=== PATIENT | male | born 1975 | race African-American/Black ===

== ENCOUNTER 2016-11-10 03:31 | Emergency (ER) | payer OTHER ==
[~2016-11-10] VITALS: Ht 182.9 cm; Wt 100.0 kg
[~2016-11-10 03:31] MED LIST: GABA600T PO; PERC10TA27 PO; XANA1TAB6 PO; ZITH250T PO
[2016-11-10 03:34] VITALS: BP 116/85; PULSE 69; RESP 20; TEMP 98.2; O2SAT 98
[2016-11-10 04:00] VITALS: BP 147/79; PULSE 62; RESP 20; TEMP 98.8; O2SAT 100
[2016-11-10] MEDS ORDERED: GABA600T PO (04:03)
--- NOTE | 2016-11-10 04:22 | PD ---
HPI Chief Complaint: GI Complaint Time Seen by Provider: 04:08 Travel History International Travel<30 days: No Contact w/Intl Traveler<30days: No Traveled to known affect area: No History of Present Illness HPI 41-year-old man who presents emergency department saying he has not felt well for the past several days. States several days ago he started feeling generally unwell, having chills, not able to breathe. Started having coughing. He states starting today he had coughing productive of mucoid phlegm associated with some bright red blood. He states he also today throughout blood. Denies ever having had previous similar problems. He was seen in the emergency Department one time last year for hemoptysis and chest pain with a negative workup including labs, CT pulmonary angiogram and stress test. Myocardial perfusion scan. There is also positive for cocaine and marijuana at that point. States he otherwise had been feeling well. No definite sick contacts. History of asthma, as well as seizures. No other complaints. History Past Medical History Narrative Medical Asthma Seizures Tetanus Vaccination: < 5 Years Social History Alcohol Use: No Tobacco Use: Yes Allergies-Medications (Allergen,Severity, Reaction): Coded Allergies: No Known Allergies (Unverified , 11/10/16) Reported Meds & Prescriptions Reported Meds & Active Scripts Active Reported Gabapentin 600 Mg Tab 600 Mg PO TID Review of Systems Except as stated in HPI: all other systems reviewed are Neg Physical Exam Narrative GENERAL: 41-year-old man, no acute distress. SKIN: Warm and dry. HEAD: Atraumatic. Normocephalic. EYES: Pupils equal and round. No scleral icterus. No injection or drainage. ENT: No nasal bleeding or discharge. Mucous membranes pink and moist. Throat is normal. NECK: Trachea midline. No JVD. CARDIOVASCULAR: Regular rate and rhythm. No murmur appreciated. RESPIRATORY: No accessory muscle use. Clear to auscultation. Breath sounds equal bilaterally. GASTROINTESTINAL: Abdomen soft, non-tender, nondistended. Hepatic and splenic margins not palpable. MUSCULOSKELETAL: Usual contracture deformity of the left upper extremity. Otherwise unremarkable. No edema. NEUROLOGICAL: Awake and alert. No obvious cranial nerve deficits. Motor grossly within normal limits. Normal speech. Data Data Last Documented VS Vital Signs Date Time Temp Pulse Resp B/P Pulse Ox O2 Delivery O2 Flow Rate FiO2 11/10/16 04:00 98.8 62 20 147/79 100 Room Air Orders Chest, Pa & Lat (11/10/16 ) Electrocardiogram (11/10/16 ) Complete Blood Count With Diff (11/10/16 04:01) Comprehensive Metabolic Panel (11/10/16 04:01) Act Partial Throm Time (Ptt) (11/10/16 04:01) Prothrombin Time / Inr (Pt) (11/10/16 04:01) Ed Poc Ultrasound (11/10/16 ) Labs Laboratory Tests Test 11/10/16 04:16 White Blood Count 5.2 TH/MM3 Red Blood Count 4.25 MIL/MM3 Hemoglobin 13.4 GM/DL Hematocrit 37.6 % Mean Corpuscular Volume 88.4 FL Mean Corpuscular Hemoglobin 31.5 PG Mean Corpuscular Hemoglobin 35.7 % Concent Red Cell Distribution Width 14.1 % Platelet Count 246 TH/MM3 Mean Platelet Volume 8.1 FL Neutrophils (%) (Auto) 60.1 % Lymphocytes (%) (Auto) 26.9 % Monocytes (%) (Auto) 11.0 % Eosinophils (%) (Auto) 1.7 % Basophils (%) (Auto) 0.3 % Neutrophils # (Auto) 3.1 TH/MM3 Lymphocytes # (Auto) 1.4 TH/MM3 Monocytes # (Auto) 0.6 TH/MM3 Eosinophils # (Auto) 0.1 TH/MM3 Basophils # (Auto) 0.0 TH/MM3 CBC Comment DIFF FINAL Differential Comment Prothrombin Time 10.6 SEC Prothromb Time International 1.0 RATIO Ratio Activated Partial 27.9 SEC Thromboplast Time Sodium Level 141 MEQ/L Potassium Level 3.9 MEQ/L Chloride Level 109 MEQ/L Carbon Dioxide Level 23.1 MEQ/L Anion Gap 9 MEQ/L Blood Urea Nitrogen 13 MG/DL Creatinine 1.24 MG/DL Estimat Glomerular Filtration 78 ML/MIN Rate Random Glucose 82 MG/DL Calcium Level 8.7 MG/DL Total Bilirubin 0.5 MG/DL Aspartate Amino Transf 14 U/L (AST/SGOT) Alanine Aminotransferase 19 U/L (ALT/SGPT) Alkaline Phosphatase 69 U/L Total Protein 7.5 GM/DL Albumin 3.8 GM/DL MDM Medical Decision Making Medical Screen Exam Complete: Yes Emergency Medical Condition: Yes Interpretation(s) My review of EKG: Sinus bradycardia at a rate of 57, normal axis, normal intervals, no acute ischemia. Likely LVH. Chest x-ray: No evidence of acute cardiopulmonary disease. CBC is unremarkable. CMP is unremarkable. Coags unremarkable. Differential Diagnosis Bronchitis, pneumonia, PE, ACS, other Narrative Course Medical decision making INITIAL: 41-year-old man with not feeling well for several days, chills, productive cough with some bloody sputum, as well as reported hematemesis. Previous evaluation for hemoptysis was negative. Suspect bronchitis. May be some kind of reactive pneumonitis if he is still smoking cocaine or marijuana. Nonetheless, he looks overall well. Normal pulmonary exam. We'll check x-ray, labs, likely supportive treatment. Diagnosis Primary Impression: Bronchitis Additional Instructions: Take ranitidine as prescribed. Use a inhaler as needed for any shortness of breath or chest tightness. Follow-up with her primary doctor in the next 2-4 days. Return to the emergency department for any new or worsening symptoms. Med/Other Pt SpecificInfo: Prescription(s) given Scripts Albuterol 18 GM Inh (Ventolin Hfa 18 GM Inh)90 Mcg/Act Aer2 Puff INH Q4-6H PRN ( SHORTNESS OF BREATH) #1 INHALER Prov:Behzad Ferrer MD 11/10/16 Ranitidine 150 Mg [id number] Mg PO BID #60 CAP Prov:Behzad Ferrer MD 11/10/16 Disposition: 01 DISCHARGE HOME Condition: Stable Behzad Ferrer MD Nov 10, 2016 04:22
--- NOTE | 2016-11-10 04:39 | RADRPT ---
EXAM DATE/TIME: 11/10/2016 04:19 [facility] COMPARISON: No previous studies available for comparison. INDICATIONS : Coughing up blood and chest pain. MEDICAL HISTORY : None. SURGICAL HISTORY : None. ENCOUNTER: Initial ACUITY: 2 days PAIN SCORE: 4/10 LOCATION: chest FINDINGS: PA and lateral views of the chest demonstrate the lungs to be symmetrically aerated without evidence of mass, infiltrate or effusion. The cardiomediastinal contours are unremarkable. Osseous structure s are intact. CONCLUSION: No evidence of acute cardiopulmonary disease. Magdaleno Moon MD on November 10, 2016 at 4:37 Board Certified Radiologist. This report was verified electronically.
[2016-11-10 04:46] LABS: AUTOMATED NEUTROPHIL # 3.1 TH/MM3 (1.8-7.7); BASOPHIL % 0.3 % (0.0-2.0); EOSINOPHIL # 0.1 TH/MM3 (0-0.4); EOSINOPHIL % 1.7 % (0.0-4.0); HEMATOCRIT 37.6 % (39.0-51.0); HEMO FLAGS DIFF FINAL; LYMPH % 26.9 % (9.0-44.0); LYMPHOCYTE # 1.4 TH/MM3 (1.0-4.8); MEAN CELL VOLUME 88.4 FL (80.0-100.0); MEAN CORPUSCULAR HEMOGLOBIN 31.5 PG (27.0-34.0); MEAN CORPUSCULAR HGB CONC 35.7 % (32.0-36.0); NEUT % 60.1 % (16.0-70.0); PLATELET COUNT 246 TH/MM3 (150-450); RED BLOOD COUNT 4.25 MIL/MM3 (4.50-5.90); RED CELL DISTRIBUTION WIDTH 14.1 % (11.6-17.2); WHITE BLOOD COUNT 5.2 TH/MM3 (4.0-11.0)
[2016-11-10 04:57] LABS: APTT (PATIENT) 27.9 SEC (24.3-30.1); PROTHROMBIN TIME - PATIENT 10.6 SEC (9.8-11.6)
[2016-11-10 05:09] LABS: ALT (GPT) 19 U/L (12-78); ANION GAP 9 MEQ/L (5-15); AST (GOT) 14 U/L (15-37); BICARBONATE 23.1 MEQ/L (21.0-32.0); BLOOD UREA NITROGEN 13 MG/DL (7-18); CHLORIDE 109 MEQ/L (98-107); GLOMERULAR FILTRATION RATE 78 ML/MIN (>89); POTASSIUM 3.9 MEQ/L (3.5-5.1); SODIUM (NA) 141 MEQ/L (136-145)
[2016-11-10 05:11] LABS: ALKALINE PHOSPHATASE 69 U/L (45-117); TOTAL BILIRUBIN ADULT 0.5 MG/DL (0.2-1.0)
[2016-11-10] MEDS ORDERED: RANI150C PO (05:18)
[2016-11-10] MEDS ORDERED: VENTAER INH (05:18)
[2016-11-10 05:34] VITALS: BP 124/79
--- NOTE | 2016-11-10 16:19 | EKG ---
Date Performed: 11/10/2016 Time Performed: 04:34:15 PTAGE: 41 years EKG: SINUS BRADYCARDIA VOLTAGE CRITERIA FOR LVH. Early repolarization changes present. Since pre vious tracing, no significant change noted ABNORMAL ECG PREVIOUS TRACING : 05/06/2016 05.28.08 DOCTOR: Nahun Reese Interpretating Date/Time 11/10/2016 16:17:33
== END 2016-11-10 05:46 | disposition home or self-care (01) ==
LOC: NEPC 03:31
DX: J40 Bronchitis, not specified as acute or chronic (principal); K92.0 Hematemesis; R04.2 Hemoptysis; R94.31 Abnormal electrocardiogram [ECG] [EKG]; Z72.0 Tobacco use; Z87.09 Personal history of other diseases of the respiratory system; Z86.69 Personal history of other diseases of the nervous system and sense organs
CPT/HCPCS: 71020; 80053; 85025; 85610; 85730; 93005

== ENCOUNTER 2017-04-12 00:31 | Emergency (ER) | payer OTHER ==
[~2017-04-12] VITALS: Ht 180.3 cm; Wt 105.0 kg
[~2017-04-12 00:31] MED LIST changes: -PERC10TA27 PO; +RANI150C PO; +VENTAER INH; -XANA1TAB6 PO; -ZITH250T PO
[2017-04-12 00:36] VITALS: BP 156/74; PULSE 73; RESP 18; TEMP 98.1; O2SAT 98
[2017-04-12] MEDS ORDERED: SODIUM CHLORIDE 0.9% FLUSH 10 ML FLUSH IVF PRN (01:30)
[2017-04-12] MEDS ORDERED: SODIUM CHLORID 0.9% 500 ML INJ 500 ML IV ONE (01:30)
[2017-04-12 01:42] LABS: AUTOMATED NEUTROPHIL # 4.8 TH/MM3 (1.8-7.7); BASOPHIL % 0.3 % (0.0-2.0); EOSINOPHIL % 0.5 % (0.0-4.0); HEMATOCRIT 40.2 % (39.0-51.0); HEMO FLAGS DIFF FINAL; LYMPH % 27.9 % (9.0-44.0); LYMPHOCYTE # 2.3 TH/MM3 (1.0-4.8); MEAN CELL VOLUME 89.4 FL (80.0-100.0); MEAN CORPUSCULAR HEMOGLOBIN 29.6 PG (27.0-34.0); MEAN CORPUSCULAR HGB CONC 33.2 % (32.0-36.0); MONO % 12.9 % (0.0-8.0); NEUT % 58.4 % (16.0-70.0); PLATELET COUNT 266 TH/MM3 (150-450); RED CELL DISTRIBUTION WIDTH 14.3 % (11.6-17.2); WHITE BLOOD COUNT 8.3 TH/MM3 (4.0-11.0)
--- NOTE | 2017-04-12 01:59 | PD ---
HPI Chief Complaint: Chest Pain Time Seen by Provider: 01:13 Travel History International Travel<30 days: No Contact w/Intl Traveler<30days: No Traveled to known affect area: No History of Present Illness HPI So 41-year-old man who presents emergency department complaining of chest pain. He reports over the past 2 days he's felt bad with nausea vomiting diarrhea and feeling sick in the stomach after he ate a sandwich from [employer]. Today he was still feeling bad. He went to the store and got some [id number] medicines for her stomach. It wasn't really feeling much better. While at home he started getting left-sided chest pain and numbness, was given a called EMS, and then had a seizure. He has a history of seizures, with a seizure every 1 with his last seizure about 6 months ago. He states his seizures very. Family called the ambulance. Feeling better now but still has some left- sided chest pain. He doesn't really take any seizure medicine. Use Neurontin and Xanax in the past. 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 History of CHF in the past Tetanus Vaccination: < 5 Years Influenza Vaccination: No Social History Alcohol Use: No Tobacco Use: Yes Allergies-Medications (Allergen,Severity, Reaction): Coded Allergies: No Known Allergies (Unverified , 04/12/17) Reported Meds & Prescriptions Reported Meds & Active Scripts Active Ventolin Hfa 18 GM Inh (Albuterol Sulfate) 90 Mcg/Act Aer 2 Puff INH Q4-6H PRN Ranitidine (Ranitidine HCl) 150 Mg Cap 150 Mg PO BID Reported Gabapentin 600 Mg Tab 600 Mg PO TID Review of Systems Except as stated in HPI: all other systems reviewed are Neg Physical Exam Narrative GENERAL: Well-appearing 41-year-old man, no acute distress. SKIN: Focused skin assessment warm/dry. HEAD: Atraumatic. Normocephalic. EYES: Pupils equal and round. No scleral icterus. No injection or drainage. ENT: No nasal bleeding or discharge. Mucous membranes pink and moist. NECK: Trachea midline. No JVD. CARDIOVASCULAR: Regular rate and rhythm. No murmur appreciated. RESPIRATORY: No accessory muscle use. Clear to auscultation. Breath sounds equal bilaterally. GASTROINTESTINAL: Abdomen soft, non-tender, nondistended. Hepatic and splenic margins not palpable. MUSCULOSKELETAL: No obvious deformities. No clubbing. No cyanosis. No edema. NEUROLOGICAL: Awake and alert. No obvious cranial nerve deficits. Motor grossly within normal limits. Normal speech. PSYCHIATRIC: Appropriate mood and affect; insight and judgment normal. Data Data Last Documented VS Vital Signs Date Time Temp Pulse Resp B/P Pulse Ox O2 Delivery O2 Flow Rate FiO2 04/12/17 00:40 65 18 98 Room Air 04/12/17 00:36 98.1 156/74 Orders Electrocardiogram (04/12/17 01:25) Basic Metabolic Panel (Bmp) (04/12/17 01:25) Complete Blood Count With Diff (04/12/17:25) Magnesium (Mg) (04/12/17:25) Troponin I (04/12/17 01:25) Chest, Single Ap (04/12/17:25) Ecg Monitoring (04/12/17:25) Iv Access Insert/Monitor (04/12/17:25) Oximetry (04/12/17:25) Oxygen Administration (04/12/17 01:25) Sodium Chloride 0.9% Flush (Ns Flush) (04/12/17 01:30) Sodium Chlorid 0.9% 500 Ml Inj (Ns 500 M (04/12/17 01:30) Troponin I (04/12/17 04:00) Morphine Inj (Morphine Inj) (04/12/17 02:30) Morphine Inj (Morphine Inj) (04/12/17 03:00) Labs Laboratory Tests Test 04/12/17 04/12/17 01:30 03:30 White Blood Count 8.3 TH/MM3 Red Blood Count 4.50 MIL/MM3 Hemoglobin 13.3 GM/DL Hematocrit 40.2 % Mean Corpuscular Volume 89.4 FL Mean Corpuscular Hemoglobin 29.6 PG Mean Corpuscular Hemoglobin 33.2 % Concent Red Cell Distribution Width 14.3 % Platelet Count 266 TH/MM3 Mean Platelet Volume 9.5 FL Neutrophils (%) (Auto) 58.4 % Lymphocytes (%) (Auto) 27.9 % Monocytes (%) (Auto) 12.9 % Eosinophils (%) (Auto) 0.5 % Basophils (%) (Auto) 0.3 % Neutrophils # (Auto) 4.8 TH/MM3 Lymphocytes # (Auto) 2.3 TH/MM3 Monocytes # (Auto) 1.1 TH/MM3 Eosinophils # (Auto) 0.0 TH/MM3 Basophils # (Auto) 0.0 TH/MM3 CBC Comment DIFF FINAL Differential Comment Sodium Level 140 MEQ/L Potassium Level 4.9 MEQ/L Chloride Level 106 MEQ/L Carbon Dioxide Level 29.3 MEQ/L Anion Gap 5 MEQ/L Blood Urea Nitrogen 9 MG/DL Creatinine 1.19 MG/DL Estimat Glomerular Filtration 82 ML/MIN Rate Random Glucose 51 MG/DL Calcium Level 9.1 MG/DL Magnesium Level 2.2 MG/DL Troponin I LESS THAN 0.02 LESS THAN 0.02 NG/ML NG/ML MDM Medical Decision Making Medical Screen Exam Complete: Yes Emergency Medical Condition: Yes Interpretation(s) My review of EKG: Normal sinus rhythm at a rate of 67, normal axis, normal intervals, probable LVH with some J-point elevation across the anterior precordium, no evidence of acute ischemia. LABS: CBC is unremarkable. CMP is unremarkable. Troponin negative 2 Chest x-ray negative. Differential Diagnosis Seizure, chest pain, ACS, injury, other Narrative Course Medical decision making INITIAL: 41-year-old man who presents with chest pain and seizure. 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 He has seizures in the past. He states he normally takes Xanax and Neurontin for them. He overall looks well. This could've been brought on by stress from the current GI illness. We'll check labs and IV fluids. We'll check a delta troponin. If negative we'll recommend outpatient follow-up. We'll give Diagnosis Primary Impression: Seizure disorder Additional Impression: Chest pain Additional Instructions: Do not drive or operate heavy machinery until cleared by neurology. You should avoid being in any situation where if you had a seizure it could be dangerous such as swimming, looking on a ladder, or other such activities. Return to the emergency department for any seizures lasting more than 5 minutes , [id number] seizures, or seizures with prolonged confusion afterwards. Med/Other Pt SpecificInfo: No Change to Meds Disposition: 01 DISCHARGE HOME Condition: Stable Behzad Ferrer MD Apr 12, 2017 01:59
[2017-04-12 02:06] LABS: ANION GAP 5 MEQ/L (5-15); BICARBONATE 29.3 MEQ/L (21.0-32.0); BLOOD UREA NITROGEN 9 MG/DL (7-18); CHLORIDE 106 MEQ/L (98-107); GLOMERULAR FILTRATION RATE 82 ML/MIN (>89); MAGNESIUM 2.2 MG/DL (1.5-2.5); SODIUM (NA) 140 MEQ/L (136-145)
[2017-04-12 02:07] LABS: POTASSIUM 4.9 MEQ/L (3.5-5.1)
--- NOTE | 2017-04-12 02:12 | RADRPT ---
EXAM DATE/TIME: 04/12/2017 01:30 [facility] COMPARISON: No previous studies available for comparison. INDICATIONS : Chest pain. MEDICAL HISTORY : None. SURGICAL HISTORY : None. ENCOUNTER: Initial ACUITY: 1 day PAIN SCORE: 7/10 LOCATION: Bilateral chest FINDINGS: Single AP view of the chest. The lungs are clear. Cardiomediastinal silhouette within normal limits. No evidence of pleural effusion or pneumothorax. CONCLUSION: No acute cardiopulmonary disease identified. Segun Donaldson MD on April 12, 2017 at 2:10 Board Certified Radiologist. This report was verified electronically.
[2017-04-12] MEDS ORDERED: MORPHINE SULFATE 4 MG/ML INJ IV PUSH ONE (02:30)
[2017-04-12] MEDS ORDERED: MORPHINE SULFATE 8 MG/ML INJ IV PUSH ONE (03:00)
[2017-04-12 03:17] VITALS: BP 150/68; PULSE 80; RESP 14; O2SAT 100
[2017-04-12 04:00] VITALS: BP 148/70; PULSE 82; RESP 16; O2SAT 98
[2017-04-12 05:16] VITALS: BP 152/72; PULSE 84; RESP 14; O2SAT 99
--- NOTE | 2017-04-12 08:33 | EKG ---
Date Performed: 04/12/2017 Time Performed: 00:36:47 PTAGE: 41 years EKG: Sinus rhythm WITH SINUS ARRHYTHMIA VOLTAGE CRITERIA FOR LVH ABNORMAL ECG NO PREVIOUS TRACING DOCTOR: Richar Verduzco Interpretating Date/Time 04/12/2017 08:32:19
== END 2017-04-12 06:10 | disposition home or self-care (01) ==
LOC: NEPC 00:31
DX: R07.9 Chest pain, unspecified (principal); R11.2 Nausea with vomiting, unspecified; R19.7 Diarrhea, unspecified; I49.9 Cardiac arrhythmia, unspecified; R94.31 Abnormal electrocardiogram [ECG] [EKG]; G40.909 Epilepsy, unspecified, not intractable, without status epilepticus; I50.9 Heart failure, unspecified; Z72.0 Tobacco use; Z79.899 Other long term (current) drug therapy
CPT/HCPCS: 71010; 80048; 83735; 84484; 85025; 93005; 96361; 96374; 99285; J2270; J7040

== ENCOUNTER 2017-06-23 06:53 | Emergency (ER) | payer OTHER ==
[~2017-06-23] VITALS: Ht 180.3 cm; Wt 100.0 kg
[2017-06-23 07:08] VITALS: BP 138/94; PULSE 80; RESP 16; TEMP 97.8; O2SAT 100
[2017-06-23] MEDS ORDERED: IBUPROFEN 600 MG TAB PO ONE (07:30)
--- NOTE | 2017-06-23 07:32 | PD ---
HPI Chief Complaint: Fall Time Seen by Provider: 07:24 Travel History International Travel<30 days: No Contact w/Intl Traveler<30days: No Traveled to known affect area: No History of Present Illness HPI Patient is a 41-year-old male who presents to emergency with complaints of left arm pain and low back pain. Patient reports that he slipped while in the bathtub today, reports that after he slipped, hit his left shoulder as well as his right low back on the bathtub. Patient denies any trauma to the head or neck. Denies any loss of consciousness, he currently is not on anticoagulants. Patient has any chest pain or shortness of breath, denies any abdominal pain, he was able to ambulate after his fall. [facility] Past Medical History Anxiety: Yes Heart Rhythm Problems: No Cardiac Catheterization: No Cardiovascular Problems: Yes (htn) High Cholesterol: Yes Congestive Heart Failure: Yes Diabetes: No Hypertension: Yes Seizures: Yes Influenza Vaccination: Yes Past Surgical History Surgical History: No Previous Surgery Coronary Artery Bypass Graft: No Social History Alcohol Use: No Tobacco Use: Yes Substance Use: No Allergies-Medications (Allergen,Severity, Reaction): Coded Allergies: No Known Allergies (Unverified , 06/23/17) Reported Meds & Prescriptions Reported Meds & Active Scripts Active Ventolin Hfa 18 GM Inh (Albuterol Sulfate) 90 Mcg/Act Aer 2 Puff INH Q4-6H PRN Ranitidine (Ranitidine HCl) 150 Mg Cap 150 Mg PO BID Reported Gabapentin 600 Mg Tab 600 Mg PO TID Review of Systems General / Constitutional: No: Fever Eyes: No: Visual changes HENT: No: Headaches Cardiovascular: No: Chest Pain or Discomfort Respiratory: No: Shortness of Breath Gastrointestinal: No: Abdominal Pain Genitourinary: No: Dysuria Musculoskeletal: Positive: Limited ROM (left shoulder), Pain (left shoulder) Skin: No Rash Neurologic: No: Weakness Psychiatric: No: Depression Endocrine: No: Polydipsia Hematologic/Lymphatic: No: Easy Bruising Physical Exam Narrative GENERAL: mild distress SKIN: Focused skin assessment warm/dry. HEAD: Atraumatic. Normocephalic. EYES: Pupils equal and round. No scleral icterus. No injection or drainage. ENT: No nasal bleeding or discharge. Mucous membranes pink and moist. No cervical midline tenderness NECK: Trachea midline. No JVD. CARDIOVASCULAR: Regular rate and rhythm. No murmur appreciated. RESPIRATORY: No accessory muscle use. Clear to auscultation. Breath sounds equal bilaterally. GASTROINTESTINAL: Abdomen soft, non-tender, nondistended. Hepatic and splenic margins not palpable. MUSCULOSKELETAL: No obvious deformities. No clubbing. No cyanosis. No edema. Patient with pain with range of motion to left shoulder, no obvious open fracture or open deformities, patient with right-sided lumbar paraspinal tenderness, patient ambulating in the emergency with normal gait. No saddle anesthesia NEUROLOGICAL: Awake and alert. No obvious cranial nerve deficits. Motor grossly within normal limits. Normal speech. PSYCHIATRIC: Appropriate mood and affect; insight and judgment normal. Data Data Last Documented VS Vital Signs Date Time Temp Pulse Resp B/P (MAP) Pulse Ox O2 Delivery O2 Flow Rate FiO2 06/23/17 07:08 97.8 80 16 138/94 (109) 100 Orders Orders Spine, Lumbar - Ltd (Ap & Lat) (06/23/17 ) Shoulder, Complete (>2vws) (06/23/17 ) Humerus (Min 2vws) (06/23/17 ) Ibuprofen (Motrin) (06/23/17 07:30) MDM Medical Decision Making Medical Screen Exam Complete: Yes Emergency Medical Condition: Yes Interpretation(s) Vital Signs Date Time Temp Pulse Resp B/P (MAP) Pulse Ox O2 Delivery O2 Flow Rate FiO2 06/23/17 07:08 97.8 80 16 138/94 (109) 100 Differential Diagnosis shoulder fracture/dislocation/sprain, lumbar strain/fracture Narrative Course Patient is a 41 year old male who presents to ER with c/o of left shoulder pain as well as right lumbar pain after he slipped in his bathtub this morning. Patient currently is not on any anticoagulants, denies any trauma to the head or neck, denies any loss of consciousness. Plan to obtain x-ray of the left shoulder as well as the lumbar spine. Last Impressions Shoulder X-Ray 06/23/17 0000 Signed Impressions: Service Date/Time: Friday, June 23, 2017 07:42 - CONCLUSION: No acute abnormality is identified. Magdaleno Burgess MD Lumbar Spine X-Ray 06/23/17 0000 Signed Impressions: Service Date/Time: Friday, June 23, 2017 07:41 - CONCLUSION: No acute abnormality is identified. Magdaleno Burgess MD Humerus X-Ray 06/23/17 0000 Signed Impressions: Service Date/Time: Friday, June 23, 2017 07:45 - CONCLUSION: No acute abnormality is identified. Magdaleno Burgess MD Patient with no acute fractures, patient will follow up with his pcp and will return to ER as needed. Diagnosis Primary Impression: Shoulder sprain Qualified Codes: S43.402A - Unspecified sprain of left shoulder joint, initial encounter Additional Impression: Low back pain Qualified Codes: M54.5 - Low back pain Patient Instructions: General Instructions Additional Instructions: Please follow up with your primary care doctor Return to ER as needed Apply ice to area of pain, take NSAIDS for pain Med/Other Pt SpecificInfo: Prescription(s) given Scripts Ibuprofen (Ibuprofen) 600 Mg Tab 600 MG PO Q6H Y for Pain/Inflammation, #40 TAB 0 Refills Prov: Bina Tanner DO 06/23/17 Disposition: 01 DISCHARGE HOME Condition: Stable Bina Tanner DO Jun 23, 2017 07:32
--- NOTE | 2017-06-23 08:07 | RADRPT ---
EXAM DATE/TIME: 06/23/2017 07:42 [facility] COMPARISON: No previous studies available for comparison. INDICATIONS : Left shoulder pain post fall MEDICAL HISTORY : Cardiovascular disease. seizures SURGICAL HISTORY : None. ENCOUNTER: Initial ACUITY: 1 day PAIN SCORE: 8/10 LOCATION: Left shoulder FINDINGS: 4 views of the left shoulder demonstrate no fracture or dislocation. The acromioclavicular joint is i ntact. No soft tissue abnormality is identified. The visualized portions of the left lung are clear and no displaced rib fracture is seen. CONCLUSION: No acute abnormality is identified. Magdaleno Burgess MD on June 23, 2017 at 8:05 Board Certified Radiologist. This report was verified electronically.
--- NOTE | 2017-06-23 08:08 | RADRPT ---
EXAM DATE/TIME: 06/23/2017 07:45 [facility] COMPARISON: No previous studies available for comparison. INDICATIONS : Left humerus pain post fall MEDICAL HISTORY : Cardiovascular disease. Seizures SURGICAL HISTORY : None. ENCOUNTER: Initial ACUITY: 1 day PAIN SCORE: 8/10 LOCATION: Left humerus FINDINGS: 2 views of the left arm demonstrate no fracture or dislocation. Mineralization is normal. No soft tis regan abnormalities or radiopaque foreign body is identified. CONCLUSION: No acute abnormality is identified. Magdaleno Burgess MD on June 23, 2017 at 8:06 Board Certified Radiologist. This report was verified electronically.
--- NOTE | 2017-06-23 08:09 | RADRPT ---
EXAM DATE/TIME: 06/23/2017 07:41 [facility] COMPARISON: No previous studies available for comparison. INDICATIONS : Patient fell Complains of mid lumbar pain MEDICAL HISTORY : Cardiovascular disease. Seizures SURGICAL HISTORY : None. ENCOUNTER: Initial ACUITY: 1 day PAIN SCORE: 8/10 LOCATION: Bilateral middle lumbar FINDINGS: Three views of the lumbar spine demonstrate five [id number] lumbar vertebral bodies. No fracture or compression deformity is present. There is no anterolisthesis or retrolisthesis. No significant a rthropathy is present. The visualized paraspinous soft tissues and pelvic bones demonstrate no acute abnormality. CONCLUSION: No acute abnormality is identified. Magdaleno Burgess MD on June 23, 2017 at 8:07 Board Certified Radiologist. This report was verified electronically.
[2017-06-23] MEDS ORDERED: IBUP-232 PO (09:21)
[2017-06-23 09:44] VITALS: BP 126/78
== END 2017-06-23 09:40 | disposition home or self-care (01) ==
LOC: NEPE 06:53
DX: S43.402A Unspecified sprain of left shoulder joint, initial encounter (principal); M54.5 Low back pain; I10 Essential (primary) hypertension; I50.9 Heart failure, unspecified; W01.198A Fall on same level from slipping, tripping and stumbling with subsequent striking against other object, initial encounter; Y93.E1 Activity, personal bathing and showering; Y92.091 Bathroom in other non-institutional residence as the place of occurrence of the external cause
CPT/HCPCS: 72100; 73030; 73060; 99284